=== PATIENT | female | born 1960 | race Caucasian/White ===

== ENCOUNTER 2021-11-05 14:17 | Outpatient (CLI) | payer BC, SELFPAY ==
--- NOTE | ~2021-11-05 | US_ITS ---
EXAMINATION: US venous doppler LE RT DATE: 11/05/2021 15:27 INDICATION: Right lower limb pain. TECHNIQUE: Grayscale ultrasound images without and with compression and Doppler ultrasound images of the right lower extremity veins were obtained. COMPARISON: None. FINDINGS: The visualized portions of right common femoral vein, profunda (deep) femoral vein, femoral vein, pop liteal vein, peroneal veins, posterior tibial veins, and greater saphenous vein outflow are patent. IMPRESSION: 1. No deep venous thrombosis. Reviewed, dictated and finalized at location A.
== END 2021-11-05 14:18 | disposition home or self-care (01) ==
LOC: CHSIMG 14:19
PROVIDERS: PCP Nurse Practitioner Family; Visit Provider Nurse Practitioner Family
DX: M79.604 Pain in right leg (principal)
CPT/HCPCS: 93971

== ENCOUNTER 2021-11-06 13:41 | Outpatient (RCR) | payer BC, SELFPAY ==
--- NOTE | 2021-11-06 15:50 | PTOPEVAL ---
Thank you for referring Rachael Daigle to [facility].? The patient is scheduled to be seen for therapy? ____x/week for ___ weeks. Please review, sign, date and return this plan of care HERNAN. I agree with and certify that the following plan of care is medically necessary. Referring Physician Date Admitting Provider: Attending Provider: Allyson Galan NP Referring Provider: *PT Outpatient Evaluation Start: 11/06/21 14:02 Freq: Status: Active Protocol: Document 11/06/21 14:34 [facility] (Rec: 11/06/21 15:25 [facility] [id number]) Therapy Assessment Status Assessment Status Assessment Status Evaluation Evaluation Information Problem Diagnosis R Knee Pain Onset 11/05/21 Additional Evaluation Detail LEFS = 47.5% Functionally Declined Subjective Information Pt reports that about a month Query Text:As Reported By Patient/ ago, she was going up stairs Family to get into her apartment while carrying groceries and experienced a sharp pain in the back of her R knee. Pt states that the pain has varied in intensity as time has passed since the day of her injury, but the pain consistently gets worse when using steps and becomes better when walking. However, she is limited in the distance she can walk due to her back pain. She states that she has previously had a L TKA as well as an DC in 2017. Prior Level of Function Comments Additional Prior Level of Function Pt was previously able to Comments negotiate stairs and squat without any difficulty. Pain Assessment Timing of Pain Assessment Timing of Pain Assessment Pre-Treatment Pain Scale Pain Scale Used Numeric (1 - 10) Self Report Pain Assessment Right Knee(s) Reported Pain Level 3 Lowest Pain Intensity 2 Greatest Pain Intensity 9 Pain Score Pain Score 3: Self Report Interventions Used Interventions Used By Clinicians Activity or ADL's,Education, Exercise Lower Extremity Range of Motion Knee Range of Motion Right Knee Flexion Range of Motion - Active 125 Knee Extension Range of Motion - Active 3 Query Text: Left Knee Flexion Range of Motion - Active 110 Knee Extension Range of Motion - Active 0 Query Text:
--- NOTE | 2022-02-19 07:26 | PCPTNOTE ---
yoandy has not been to therapy since her initial evaluation back in October. She has been DC'd from skilled PT services due to lack of consistent attendance. MichaelTF
== END 2021-11-06 23:59 | disposition home or self-care (01) ==
LOC: CHSPT 13:41
PROVIDERS: PCP Nurse Practitioner Family; Visit Provider Nurse Practitioner Family
DX: M79.604 Pain in right leg (principal)
CPT/HCPCS: 97110; 97161

== ENCOUNTER 2023-12-02 12:30 | Outpatient (CLI) | payer OTHER, SELFPAY ==
--- NOTE | ~2023-12-02 | MM_ITS ---
EXAMINATION: MM screening tammie BI w sol HISTORY: Screening TECHNIQUE: Craniocaudal and mediolateral oblique 3-D tomosynthesis images were obtained and synthetic 2-D images were generated. CAD analysis was submitted and interpreted. COMPARISON: No prior mammogram is available for comparison at this institution. BREAST PARENCHYMAL COMPOSITION: Not dense: There are scattered areas of fibroglandular density. FINDINGS: There is no evidence of suspicious mass, calcification, or architectural distortion to sugg est malignancy in either breast. There has been no suspicious interval change. IMPRESSION: 1. No mammographic evidence of malignancy. 2. Recommend routine screening mammography in one year. BI-RADS Category 1: Negative Reviewed, dictated and finalized at location B.
== END 2023-12-02 12:31 | disposition home or self-care (01) ==
PROVIDERS: PCP Physician Assistant; Visit Provider Physician Assistant
DX: Z12.31 Encounter for screening mammogram for malignant neoplasm of breast (principal)
CPT/HCPCS: 77063; 77067

== ENCOUNTER 2024-01-30 15:50 | Outpatient (CLI) | payer OTHER, SELFPAY ==
--- NOTE | ~2024-01-30 | XR_ITS ---
XR knee RT 3V Ordering provider: Tahir Harrison, PA History: . Lateral Rt. knee pain x2 weeks, NKI . Comparison: None. FINDINGS: BONES: No acute fracture or dislocation. JOINT SPACES: Normal. SOFT TISSUES: Normal. IMPRESSION: No acute osseous abnormality right knee. Reviewed, dictated and finalized at location A.
== END 2024-01-30 15:51 | disposition home or self-care (01) ==
LOC: CHSIMG 16:04
PROVIDERS: PCP Physician Assistant; Visit Provider Physician Assistant
DX: M25.561 Pain in right knee (principal)
CPT/HCPCS: 73562

== ENCOUNTER 2025-01-11 11:51 | Outpatient (CLI) | payer MEDICARE, MEDICAID, SELFPAY ==
--- NOTE | ~2025-01-11 | MM_ITS ---
EXAMINATION: MM screening tammie BI w sol HISTORY: Screening TECHNIQUE: Craniocaudal and mediolateral oblique 3-D tomosynthesis images were obtained and synthetic 2-D images were generated. CAD analysis was submitted and interpreted. COMPARISON: Comparison to multiple prior studies sequentially, with oldest reviewed study dated 08/23/2010. BREAST PARENCHYMAL COMPOSITION: There are scattered areas of fibroglandular density. FINDINGS: There is no evidence of suspicious mass, calcification, or architectural distortion to suggest malignancy in either breast. IMPRESSION: 1. No mammographic evidence of malignancy. 2. Recommend routine screening mammography in one year. BI-RADS Category 1: Negative Reviewed, dictated and finalized at location B.
--- OUTSIDE RECORDS SUMMARY | 2025-01-11 12:03 | XMS_ITS | Clinical Summary ---
Author Organization [facility] Address [address] [place] [address] Phone Care Team Providers Care Fermentation Scientist Name Role Phone Tahir Harrsion Primary Care Provider [phone] Karena Olson APRN, POLICE RECORDS CLERK Unavailable Allergies Active Allergy Reactions Criticality Noted Date Comments Sulfa Antibiotics Swelling High 02/26/2021 Medications ASPIRIN 81 PO daily. Active Eliquis 5 MG Tablet Take 1 Tablet by mouth 2 times daily. 09/24/2023 Active lisinopril (PRINIVIL, ZESTRIL) 2.5 MG Tablet Take 1 Tablet by mouth every morning. 10/23/2022 Active gabapentin (NEURONTIN) 100 MG Capsule TAKE 1 CAPSULE BY MOUTH ONCE DAILY AT BEDTIME 09/06/2021 Active docusate sodium (COLACE) 100 MG Tablet Take 200 mg by mouth as needed. Active atorvastatin (LIPITOR) 40 MG Tablet Take 1 Tablet by mouth daily. 10/23/2022 Active Active Problems Problem Noted Date Diagnosed Date Sick sinus syndrome 03/13/2023 Implantable loop recorder present 11/12/2022 Overview (11/19/2023): Medtronic LINQ11 Loop Recorder. Dx; Syncope. DOI 10/05/2020-elsewhere. Ethan Salgado. Carelink remote monitoring. Atherosclerosis of [place] co ronary artery of [place] heart without angina pectoris 09/19/2021 History of coronary artery stent placement 09/19 Family History Medical History Relation Name Comments Heart Attack Father Cancer Mother Relation Name Status Comments Father Mother Social History Tobacco Use Types Packs/Day Years Used Date Smoking Tobacco: Never Smokeless Tobacco: Never Alcohol Use Standard Drinks/Week Comments Not Currently 0 (1 standard drink = 0.6 oz pur e alcohol) Comments Unknown Sex and Gender Information Value Date Recorded Sex Assigned at Not on file Legal Sex Female 9:42 AM CDT Gender Identity Not on file Sexual Orientation Not on file Last Filed Vital Signs Vital Sign Reading Time Taken Comments Blood Pressure 124/78 11/19/2023 3:25 PM CDT Pulse 70 11/19/2023 3:25 PM CDT Temperature 37.6 C (99.6 F) 11/19/2023 3:25 PM CDT Respiratory Rate 14 11/19/2023 3:25 PM CDT Oxygen Saturation 96% 11/19/2023 3:25 PM CDT Inhaled Oxygen Concentration - - Weight 84.9 kg (187 lb 3.2 oz) 11/19/2023 3:25 P M CDT Height 160 cm (5' 3) 11/19/2023 3:25 PM CDT Body Mass Index 33.16 11/19/2023 3:25 PM CDT Plan of Treatment Health Maintenance Due Date Last Done Comments DEXA Bone Density 1960 Hepatitis C Virus (HCV) Screening 1960 Mammogram 1960 Pap Smear 02/25/1980 Cervical Cancer Screening (CCS) 1989 HPV/Cotest 1989 Cologuard 02/25/2004 Colonoscopy 02/25/2004 Colorectal Cancer Screening 02/25/2004 Immunochemical Fecal Occult Blood 02/25/2004 Pneumococcal Immunization (50+ years) (1 of 1 - PCV) 2009 Respiratory Syncytial Virus (RSV) Immunization (Adult) (1 - Risk 60-74 years 1-dose series) 2019 Zoster Immunization (2 of 2) 04/13/2019 02/16/2019, 02/14/2019 SARS-COV-2 Immunization ( season) 2024 04/23/2021, 09/07/2020, 08/10/2020 Influenza Immunization (#1) 01/17/202502/16, 03/15/2020, 02/16/2019, Additional history exists TdaP Immunization Completed 02/26/2021 Hepatitis B Immunization Aged Out No longer eligible based on patient's age to complete this topic Human Papillomavirus (HPV) Immunization Aged Out No longer eligible based on patient's age to complete this topic Meningococcal Immunization (ACWY) Aged Out No longer eligible based on patient's age to complete this topic Rotavirus Immunization Aged Out No lo nger eligible based on patient's age to complete this topic Insurance MEDICAID [place] Care Teams Fermentation Scientist Relationship Specialty Start Date End Date Tahir Harrison, GERI [address] [place] [id number] PCP - General Physician Line Inspector 10/31/23 Karena Olson APRN, POLICE RECORDS CLERK [address] [place] [address] Nurse Practitioner Advanced Practice Nurse 11/19/23
--- OUTSIDE RECORDS SUMMARY | 2025-01-11 12:03 | XMS_ITS | Clinical Summary ---
Author Organization [id number] [address] Address [address] [place] [address] Care Team Providers Care Oracle Ebs Architect Name Role Phone Tahir Harrison Primary Care Provider [phone] Allergies Active Allergy Reactions Criticality Noted Date Comments Sulfa (Sulfonamide Antibiotics) Angioedema High 02/16 Medications gabapentin (NEURONTIN) 100 mg capsule Take 1 capsule (100 mg total) by mouth nightly as needed 09/06/2021 Active aspirin (ASPIR-81 ORAL) Acti ve docusate sodium (DOK) 100 mg tabletIndicatio ns:constipation Take 2 tablets (200 mg total) by mouth 2 (two) times a day Active ezetimibe (ZETIA) 10 mg tablet Take 1 tablet (10 mg total) by mouth daily Active apixaban (Eliquis) 5 mg tablet Take 1 tablet by mouth twice daily 180 tablet 3 09/27/2024 Active atorvastatin (LIPITOR) 40 mg tablet Take 1 tablet by mouth once daily 90 tablet 2 11/25/2024 Active lisinopriL (PRINIVIL,ZESTR [place]) 2.5 mg tablet Take 1 tablet by mouth once daily 90 tablet 2 11/25/2024 Active Active Problems Problem Noted Date Diagnosed Date Sick sinus syndrome 03/13/2023 Implantable loop recorder present 11/12/2022 Overview (11/12/2022): Medtronic LINQ11 Loop Recorder. Dx; Syncope. DOI 10/05/2020-elsewhere. Ethan Salgado. Carelink remote monitoring. Atherosclerosis of [place] co ronary artery of [place] heart without angina pectoris 09/19/2021 History of coronary artery stent placement 09/19 Surgical History Surgery Date Site/Laterality Comments CORONARY ANGIOPLASTY 05/19/2018 - 05/18/2019 CARDIAC CATHETERIZATION 05/19/2018 - 05/18/2019 Medical History Medical History Date Comments Hypertension Syncope Family History Medical History Relation Name Comments Heart attack Father Heart disease Father Hypertension Father Cancer Mother Relation Name Status Comments Father (Age 67) Mother (Age 39) Social History Tobacco Use Types Packs/Day Years Used Date Smoking Tobacco: Never Smokeless Tobacco: Never Tobacco Cessation:Counseling Given: Not Answered AUDIT-C Answer Date Recorded Q1: How often do you have a drink containing alc ohol? Never 09/19/2021 Average Number of Drinks Not on file 022 Frequency of Binge Drinking Not on file 08/2021 Comments Unknown Sex and Gender Information Value Date Recorded Sex Assigned at Not on file Legal Sex Female 7:48 PM CHIEF LIBRARIAN BRANCH Gender Identity Not on file Sexual Orientation Not on file Obstetrics History Last Filed Vital Signs Vital Sign Reading Time Taken Comments Blood Pressure 112/60 09/14/2024 11:10 AM CDT Pulse 76 09/14/2024 11:10 AM CDT Temperature - - Respiratory Rate - - Oxygen Saturation 97% 09/14/2024 11: 10 AM CDT Inhaled Oxygen Concentration - - Weight 85.2 kg (187 lb 14.4 oz) 025 11:10 AM CDT Height 160 cm (5' 3) 09/14/2024 11:10 AM CDT Body Mass Index 33.28 09/14/2024 11:10 AM CDT Plan of Treatment Health Maintenance Due Date Last Done Comments Breast Cancer Screening-Mammogram 1959 Cervical Cancer Screening 1959 Colon Cancer Screening-Colonoscopy 1959 Depression Screening 1959 Fall Risk Assessment 1959 Hepatitis C Screening 1959 Osteoporosis Screening-Bone Density Scan 1959 Hepatitis B Screening 1977 Pneumococcal vaccine 65+ (1 of 1 - PCV) 2009 Covid-19 Vaccine (2023-2 5 season) 2024 04/23/2021, 09/07/2020, 08/10/2020 Well Visit 65+ 02/25/2024 Influenza Vaccine (#1) 2025 2, 03/15/2020, 02/16/2019, Additional history exists DTaP/Tdap/Td Vaccine (2 - Td or Tdap) 02/26/2031 02/26/2021 Zoster Vaccine Completed 02/16/2019, 02/14/2019 Insurance [employer] [facility] MEDICARE ADVANTAGE Care Teams Oracle Ebs Architect Relationship Specialty Start Date End Date Tahir Harrison PA [address] [place] [address] PCP - General Family Practice 03/20/22
== END 2025-01-11 11:52 | disposition home or self-care (01) ==
LOC: CHSIMG 11:54
PROVIDERS: PCP Physician Assistant; Visit Provider Physician Assistant
DX: Z12.31 Encounter for screening mammogram for malignant neoplasm of breast (principal)
CPT/HCPCS: 77063; 77067